=== PATIENT | female | born 1930 | race Caucasian/White ===

== ENCOUNTER 2016-10-24 07:40 | Emergency (ER) | payer MEDICARE, BC ==
--- NOTE | 2016-10-24 08:17 | EDM.PDOC ---
ED HPI GI/ABDOMINAL - General Chief Complaint: Abdominal Pain Stated Complaint: ABDOMINAL PAIN AND HIGH BLOOD PRESSURE Time Seen by Provider: 10/24/16 07:56 Source of Information: Reports: Patient, RN notes reviewed - History of Present Illness INITIAL COMMENTS - FREE TEXT/NARRATIVE: 86-year-old lady comes in with lower abdominal pain. She states she's been having this for about a month. She did have colonoscopy 2 days ago. She states he did take one or 2 biopsies but nothing major concern was found with that. She also did have endoscopy. She is continuing to have lower Nick discomfort and occasional cramping. The discomfort was worse this morning a couple of hours ago. Now that she is here in the ED the discomfort is somewhat less.. No nausea vomiting diarrhea or constipation. No fever or chills. No upper abdominal discomfort. No chest pain or difficulty breathing - Related Data Allergies/ADRs: Allergies Allergy/AdvReac Type Severity Reaction Status Date / Time Sulfa (Sulfonamide Allergy Hives Verified 10/24/16 07:53 Antibiotics) Home Meds: Home Meds Aspirin 81 mg PO BEDTIME 10/24/16 [History] Calcium Carbonate/Vitamin D3 [Calcium 500-Vit D3 200 Caplet] 1 tab PO DAILY 09/11 [History] Flaxseed Oil [Flaxseed] 1,000 mg PO DAILY 10/24/16 [History] Levothyroxine 25 mcg PO ACBREAKFAST 10/24/16 [History] Lisinopril 5 mg PO DAILY 10/24/16 [History] Multivitamin [Multivitamins] 1 each PO DAILY 10/24/16 [History] [place]-3/DHA/Epa/Fish Oil [[place]-3 Fish Oil 1,200 MG Sfgl] 1 tab PO DAILY [History] Omeprazole 20 mg PO DAILY 10/24/16 [History] Simvastatin [Zocor] 5 mg PO BEDTIME 10/24/16 [History] Vit C/Vit E Ac/Lut/Mineral 1 [Prosight with Lutein] 1 each PO DAILY 10/24/16 [ History] Past Medical History Cardiovascular History: Reports: Hypertension Endocrine/Metabolic History: Reports: Hypothyroidism Social & Family History - Tobacco Use Smoking Status *Q: Former Smoker - Caffeine Use Caffeine Use: Reports: None - Recreational Drug Use Recreational Drug Use: No ED ROS GENERAL - Review of Systems Review Of Systems: See Below Constitutional: Denies: fever, chills, diaphoresis HEENT: Reports: No symptoms Respiratory: Denies: shortness of breath, pleuritic chest pain Cardiovascular: Denies: Chest pain GI/Abdominal: Reports: Abdominal pain (lower abdominal). Denies: Diarrhea, Hematochezia, Melena, Nausea, Vomiting : Reports: no symptoms Musculoskeletal: Reports: no symptoms Skin: Reports: no symptoms Neurological: Reports: no symptoms ED EXAM, GI/ABD - Physical Exam Exam: See Below General Appearance: alert, no apparent distress Throat/Mouth: Normal inspection, Normal oropharynx Head: atraumatic. No: facial swelling Neck: supple, full range of motion Respiratory/Chest: no respiratory distress, lungs clear, normal breath sounds Cardiovascular: regular rate, rhythm GI/Abdominal: soft, no distention, no mass, other (, abdomen otherwise completely soft and nontender). No: guarding, rebound Back Exam: No: CVA tenderness (L), CVA tenderness (R) Extremities: normal inspection, normal range of motion. No: pedal edema, leg pain Neurological: alert, oriented, no motor/sensory deficits Skin Exam: Warm, Dry, Normal color Course - Vital Signs Last Recorded V/S: Last Vital Signs Temp 97.3 F 10/24/16 07:48 Pulse 60 10/24/16 10:15 Resp 16 10/24/16 10:15 BP 155/64 H 10/24/16 10:15 Pulse Ox 100 10/24/16 10:15 - Orders/Labs/Meds Orders: Active Orders 24 hr Category Date Time Status EKG 12 Lead [EKG Documentation Completion] [RC] STAT Care 10/24/16 08:16 Active Labs: Laboratory Tests 10/24/16 10/24/16 Range/Units 08:30 08:30 WBC 6.77 (3.98-10.04) K/mm3 RBC 4.17 (3.98-5.22) M/mm3 Hgb 12.4 (11.2-15.7) gm/L Hct 37.4 (34.1-44.9) % MCV 89.7 (79.4-94.8) fl MCH 29.7 (25.6-32.2) pg MCHC 33.2 (32.2-35.5) g/dl RDW Std Deviation 43.4 (36.4-46.3) fL Plt Count 235 (182-369) K/mm3 MPV 9.9 (9.4-12.3) fl Neut % (Auto) 63.8 (34.0-71.1) % Lymph % (Auto) 24.8 (19.3-51.7) % Mora % (Auto) 8.4 (4.7-12.5) % Eos % (Auto) 2.7 (0.7-5.8) Baso % (Auto) 0.3 (0.1-1.2) % Neut # 4.32 (1.56-6.13) K/mm3 Lymph # 1.68 (1.18-3.74) K/mm3 Mora # 0.57 H (0.24-0.36) K/mm3 Eos # 0.18 (0.04-0.36) K/mm3 Baso # 0.02 (0.01-0.08) K/mm3 Sodium 140 (136-145) mEq/L Potassium 3.6 (3.5-5.1) mEq/L Chloride 105 (98-107) mEq/L Carbon Dioxide 27 (21-32) mEq/L Anion Gap 11.6 (5-15) BUN 15 (7-18) mg/dL Creatinine 0.8 (0.55-1.02) mg/dL Est Cr Clr Drug Dosing 37.60 mL/min Estimated GFR (MDRD) > 60 (>60) mL/min BUN/Creatinine Ratio 18.8 H (14-18) Glucose 94 (83-115) mg/dL Calcium 8.7 (8.5-10.1) mg/dL Total Bilirubin 0.5 (0.2-1.0) mg/dL AST 22 (15-37) U/L ALT 19 (14-59) U/L Alkaline Phosphatase 69 (46-116) U/L Total Protein 6.3 L (6.4-8.2) g/dl Albumin 3.1 L (3.4-5.0) g/dl Globulin 3.2 gm/dL Albumin/Globulin Ratio 1.0 (1-2) - Re-Assessments/Exams Free Text/Narrative Re-Assessment/Exam: 10/24/16 09:59 white blood count and chemistries look good, abdominal films also look fine with no visible air-fluid levels or other unusual findings. Patient has been resting fairly comfortably while here in the ED. She's not vomiting. Discharge instructions as documented. Departure - Departure Time of Disposition: 10:07 Disposition: Home, Self-Care 01 Condition: fair Clinical Impression: Abdominal pain Qualifiers: Abdominal location: lower abdomen, unspecified Qualified Code(s): R10.30 - Lower abdominal pain, unspecified Instructions: Abdominal Pain, Adult, [id number] Referrals: Laura Billy MD [Primary Care Provider] - Forms: ED Department Discharge Additional Instructions: continue clear liquids and bland diet as tolerated, start probiotic twice daily , call Dr. Billy's nurse or see Dr. Billy for followup if discomfort not resolving within the next 3-5 days, return to ED as needed - My Orders Last 24 Hours: My Active Orders 10/24/16 08:16 EKG 12 Lead [EKG Documentation Completion] [RC] STAT - Assessment/Plan Last 24 Hours: My Active Orders 10/24/16 08:16 EKG 12 Lead [EKG Documentation Completion] [RC] STAT
--- NOTE | 2016-10-24 10:00 | CR ---
Abdomen: Supine and upright views of the abdomen were obtained. Multiple calcifications are seen which overlie the right kidney but are felt not to be within the kidney. Etiology of these are uncertain and could represent gallstones within a low lying gallbladder or represent pancreatic calcifications. Phleboliths are seen within the pelvis. Vascular calcification is noted within both hips. Bowel gas pattern is normal. No free air is seen. Impression: 1. Multiple calcifications within the upper right abdomen as described above. 2. Two view abdominal study is otherwise unremarkable. Diagnostic code #3
[2016-10-24 10:16] VITALS: BP 155/64
== END 2016-10-24 10:14 | disposition home or self-care (01) ==
LOC: JD.ED 07:40
DX: R10.30 Lower abdominal pain, unspecified (principal); I10 Essential (primary) hypertension; E03.9 Hypothyroidism, unspecified; Z87.891 Personal history of nicotine dependence; Z79.899 Other long term (current) drug therapy; Z79.82 Long term (current) use of aspirin; Z88.2 Allergy status to sulfonamides
CPT/HCPCS: 36415; 74020; 74020-26; 80053; 85025; 93005; 99282; 99284-25